=== PATIENT | female | born 1970 | race African-American/Black ===

== ENCOUNTER 2017-10-05 06:32 | Day surgery (SDC) | payer BC, MEDICAID ==
[2017-10-04 11:49] LABS: ANION GAP 13 (5-19); BLOOD UREA NITROGEN 13 mg/dL (7-20); CALCIUM 10.6 mg/dL (8.4-10.2); CARBON DIOXIDE 28 mmol/L (22-30); CHLORIDE 102 mmol/L (98-107); GLUCOSE 155 mg/dL (75-110); POTASSIUM 4.5 mmol/L (3.6-5.0); SODIUM 143.4 mmol/L (137-145)
[~2017-10-05 06:32] MED LIST: CEFAZOLIN SODIUM 2 GM in DEXTROSE 5%-WATER 100 ML IV PRN; LACTATED RINGERS 1000 ML IV PRN; LIDOCAINE 0.5% INJ-PF (5 MG/ML) 50 ML SDV SUBCUT PRN
[2017-10-05] MEDS ORDERED: MIDAZOLAM 2 MG/2 ML INJ ONE (08:19)
[2017-10-05] MEDS ORDERED: PROPOFOL INJ 200 MG/20 ML VIAL IV ONE (08:20)
[2017-10-05] MEDS ORDERED: LIDOCAINE 1% INJ-PF (10 MG/ML) 30 ML SDV ONE ×2 (08:58→09:21)
[2017-10-05] MEDS ORDERED: BUPIVACAINE HCL 0.25 % INJ/PF (2.5 MG/1 ML) 30 ML VIAL ONE ×2 (08:58→09:22)
[2017-10-05] MEDS ORDERED: DIPHENHYDRAMINE HCL 50 MG/ML VIAL IV PRN (09:35)
[2017-10-05] MEDS ORDERED: MEPERIDINE HCL/PF INJ 25 MG/1 ML DISP.SYRIN IV PRN (09:35)
[2017-10-05] MEDS ORDERED: OXYCODONE-ACETAMINOPHEN 5-325 MG TABLET PO PRN ×2 (09:35)
[2017-10-05] MEDS ORDERED: PROMETHAZINE HCL INJ 25 MG/1 ML VIAL IV PRN ×2 (09:35)
[2017-10-05] MEDS ORDERED: MORPHINE SULFATE 10 MG/ML INJ IV PRN (09:35)
[2017-10-05] MEDS ORDERED: FENTANYL CITRATE INJ/PF 100 MCG/2 ML AMPUL IV PRN ×3 (09:35)
[2017-10-05] MEDS ORDERED: FENTANYL CITRATE INJ/PF 100 MCG/2 ML AMPUL ONE (09:54)
[2017-10-05] MEDS ORDERED: KETAMINE HCL INJ 500 MG/10 ML VIAL ONE (10:35)
[2017-10-05] MEDS ORDERED: HYDROCODONE/ACETAMINOPHEN 5-325 MG TABLET ONE (10:50)
[2017-10-05] MEDS ORDERED: ONDANSETRON 4 MG TAB.RAPDIS ONE (11:54)
[2017-10-05 11:56] VITALS: BP 133/82
--- NOTE | 2017-10-05 14:17 | Operative Report ---
Nonrecallable Operative Report DATE OF SURGERY: 10/05/17 PREOPERATIVE DIAGNOSIS: Large back lipoma POSTOPERATIVE DIAGNOSIS: 15 x 11 cm back lipoma OPERATION: 1. Excision of 15 x 11 cm back lipoma. 2. Intermediate closure of 16 cm back incision. SURGEON: KRISTEN MAN SEISMOGRAPH OBSERVER: ANNA MARIE NOLASCO ANESTHESIA: LMAC TISSUE REMOVED OR ALTERED: 15 x 11 cm back lipoma COMPLICATIONS: None apparent ESTIMATED BLOOD LOSS: Minimal PROCEDURE: Drains/implants: None. After informed consent was obtained, the patient was laid in the left lateral decubitus position. The area of the right back was prepped and draped in a normal sterile fashion. A 10 blade scalpel was used to create an elliptical incision around the mass of the back. Dissection was carried through the subcutaneous tissue using Bovie electrocautery. The mass was completely excised from the subcutaneous tissue. The mass extended to the muscles of the back. The mass was peeled away from the muscles of the back. Hemostasis was achieved using Bovie electrocautery. The deep tissues were closed using 2-0 Vicryl suture. The subcutaneous tissues were closed using 3-0 Vicryl suture. The overlying skin was closed using 4-0 Vicryl Rapide suture in subcuticular fashion. A dressing was fashioned, and the procedure was concluded. All sponge , instrument, and needle counts were correct 2. Anna Marie Nolasco PA-C was scrubbed and present the entirety of the procedure. She assisted with all portions of the procedure including excision of the mass, removal of the mass, closure of the soft tissue, and closure of the skin. Condition: Stable.
== END 2017-10-05 11:55 | disposition home or self-care (01) ==
LOC: OROUT 06:32
PROVIDERS: ATTEND Surgery
DX: D17.1 Benign lipomatous neoplasm of skin and subcutaneous tissue of trunk (principal); E11.9 Type 2 diabetes mellitus without complications; E78.00 Pure hypercholesterolemia, unspecified; I10 Essential (primary) hypertension; E66.9 Obesity, unspecified; Z68.42 Body mass index [BMI] 45.0-49.9, adult; Z79.899 Other long term (current) drug therapy; Z79.4 Long term (current) use of insulin
CPT/HCPCS: 36415; 82962; 80048; 88304 ×2; 11406; 12037; J2250; J0690; S0119; J3010; J3490 ×2; J2704; 300

== ENCOUNTER → 2020-03-03 | Outpatient (CLI) | payer BC ==
--- NOTE | 2020-03-03 09:03 | WOMENS IMAGING REPORT ---
EXAM DESCRIPTION: U/S ABDOMEN TOTAL IMAGES COMPLETED DATE/TIME: 03/03/2020 8:29 am REASON FOR STUDY: R10.13 EPIGASTRIC PAIN R10.13 EPIGASTRIC PAIN COMPARISON: None. TECHNIQUE: Dynamic and static grayscale images acquired of the abdomen and recorded on PACS. Additio nal selected color Doppler and spectral images recorded. Note: Study does not meet criteria for complete doppler/duplex scan LIMITATIONS: None. FINDINGS: PANCREAS: The head and body of the pancreas are normal echogenicity. The tail is obscure d by overlying bowel gas. LIVER: Fatty liver. The liver measures 18.9 cm in length, hepatomegaly. LIVER VASCULATURE: Normal directional flow of the main portal vein and hepatic veins. GALLBLADDER: No stones. The gallbladder wall measures 1.4 mm, normal wall thickness. No pericholecys tic fluid. ULTRASOUND-DETECTED SMART'S SIGN: Negative. INTRAHEPATIC DUCTS AND COMMON DUCT: CBD measures 4.2 mm in diameter, normal. The intrahepatic ducts normal caliber. No filling defects. INFERIOR VENA CAVA: Normal flow. AORTA: The proximal segment is patent. The mid and distal segments are obscured by overlying bowel gas. RIGHT KIDNEY: The right kidney measures 14.0 x 4.8 x 6.0 cm, normal size. Normal echogenicity. N o solid or suspicious masses. No hydronephrosis. No calcifications. LEFT KIDNEY: The left kidney measures 13.4 x 5.7 x 6.3 cm, normal size. Normal echogenicity. No solid or suspicious masses. No hydronephrosis. No calcifications. SPLEEN: The spleen measures 8.4 cm in length, normal size. No solid masses. PERITONEAL AND PLEURAL SPACES: No ascites or effusions. OTHER: No other significant finding. IMPRESSION: 1. Fatty liver. Hepatomegaly. 2. The tail of the pancreas and the abdominal aorta are suboptimally visualized due to overlying bow el gas. TECHNICAL DOCUMENTATION: JOB ID: [id number] 2010 [employer]- All Rights Reserved Reading location - IP/workstation name: [email or web address]
== END ==
LOC: WI 07:43
PROVIDERS: ATTEND Internal Medicine Gastroenterology
DX: R10.13 Epigastric pain (principal); K76.0 Fatty (change of) liver, not elsewhere classified; R16.0 Hepatomegaly, not elsewhere classified
CPT/HCPCS: 76700

== ENCOUNTER → 2020-05-19 | Outpatient (CLI) | payer BC ==
--- NOTE | 2020-05-19 12:59 | RADIOLOGY REPORT (SQ) ---
EXAM DESCRIPTION: NM GASTRIC EMPTYING STUDY IMAGES COMPLETED DATE/TIME: 05/19/2020 12:30 pm REASON FOR STUDY: ABDOMINAL PAIN, EPIGASTRIC/NAUSEA/GASTROPARESIS R10.13 EPIGASTRIC PAIN R11.0 VIKY SEA K31.84 GASTROPARESIS COMPARISON: None. RADIONUCLIDE AND DOSE: 2 millicuries Tc-99m Sulfur Colloid. Egg salad sandwich The route of agent administration: Oral. TECHNIQUE: 1 minute serial static imaging performed at time of meal, 1 hour, 2 hours, 3 hours, and 4 hours as needed. Once stomach reaches 90% emptying, the test is complete. Image intensity values pl otted with respect to time with linear regression algorithm. LIMITATIONS: None. FINDINGS: Patient was observed for 4 hours. Immediate post meal serves as baseline. Gastric emptying at 30 minutes was 14.4%. Gastric emptying at 60 minutes was 28.9% Gastric emptying at 90 minutes was 43.3%. Gastric emptying at 120 minutes was 57.8%. Gastric emptying at 240 minutes was 100%. Normal values: 60 minutes: 30-90% retained. If less than 30%, abnormally rapid emptying. If greater than 90%, delaye d gastric emptying. 120 minutes: <60% retained. If greater than 60%, delayed gastric emptying. 240 minutes: <10% retained. If greater than 10%, delayed gastric emptying. IMPRESSION: NORMAL GASTRIC EMPTYING. TECHNICAL DOCUMENTATION: JOB ID: [id number] 2010 [employer]- All Rights Reserved rev Reading location - IP/workstation name: [email or web address]
== END ==
LOC: RAD 07:36
PROVIDERS: ATTEND Internal Medicine Gastroenterology
DX: R10.13 Epigastric pain (principal); R11.0 Nausea; K31.84 Gastroparesis
CPT/HCPCS: 78264; A9541